=== PATIENT | male | born 1975 | race Caucasian/White ===

== ENCOUNTER 2016-07-13 06:04 | Emergency (ER) | payer BC, OTHER ==
[2016-07-13 06:19] VITALS: BP 134/77
[2016-07-13] MEDS ORDERED: Erythromycin Base 0.5% Ophth Oint 1 GM Tube EYERT ONE (06:27)
--- NOTE | 2016-07-13 06:32 | EDM.PDOC ---
ED HPI EYE COMPLAINT - General Chief Complaint: Eye Problems Stated Complaint: RIGHT EYE INJURY Time Seen by Provider: 07/13/16 06:11 Source: Reports: Patient History Limitations: Reports: No limitations - History of Present Illness INITIAL COMMENTS - FREE TEXT/NARRATIVE: This is a 40-year-old male. He is part of the [employer] group that here in town this weekend. Last night when it was late he went to his horse trailer and grabbed a bunch of coats that were hanging up and when he pulled them towards him one of the coat zippers hit him in the right eye. It bothered him for a little bit at that time but through the night it seems to have gotten worse and worse with increased watering of his right eye in crease pain of his right eye. He denies any other acute symptoms at this time. - Related Data Allergies/ADRs: Allergies No Known Allergies Allergy (Verified 07/13/16 06:19) Home Meds: Ambulatory Orders Medication Instructions Recorded Confirmed . [No Known Home Meds] 07/13/16 07/13/16 Past Medical History - Past Health History Medical/Surgical History: Denies Medical/Surgical History Social & Family History - Tobacco Use Smoking Status *Q: Never Smoker - Caffeine Use Caffeine Use: Reports: Coffee - Recreational Drug Use Recreational Drug Use: No ED ROS GENERAL - Review of Systems Review Of Systems: See Below Constitutional: Denies: fever, chills HEENT: Reports: Eye pain, Other (Eye watering) Respiratory: Reports: No Symptoms Cardiovascular: Reports: No symptoms Endocrine: Reports: no symptoms GI/Abdominal: Reports: No symptoms : Reports: no symptoms Musculoskeletal: Reports: no symptoms Skin: Reports: no symptoms Neurological: Reports: No Symptoms Psychiatric: Reports: No symptoms Hematologic/Lymphatic: Reports: no symptoms ED EXAM GENERAL W FULL EYE - Physical Exam Exam: See Below Exam Limited By: No limitations General Appearance: alert, WD/WN, no apparent distress Eye Exam: right eye: conjunctival injection, corneal abrasion (I.e. everted both lids there is no foreign body noted, with fluoresceine stain he is noted to have a 2-3 mm in diameter abrasion at approximately the 4:00 position of his cornea between the center and the edge of the cornea, no other acute findings are noted) Visual acuity (R) 20/: 20 Visual acuity (L) 20/: 20 With Correction: No Eyelids: right: lid everted for exam (See above) Conjunctiva & Sclera: right: injected (See above) Cornea Exam: right: corneal abrasion (See above) Pupils: normal accommodation Pupillary Reaction: bilateral: brisk Anterior Chamber: right: normal appearance Ears: normal external exam Nose: normal inspection Throat/Mouth: Normal lips, Normal voice Head: normocephalic Neck: supple Respiratory/Chest: no respiratory distress Back Exam: full range of motion Extremities: normal range of motion Neurological: alert, oriented Psychiatric: normal affect, normal mood Skin Exam: Warm, Dry Course - Vital Signs Last Recorded V/S: Last Vital Signs Temp 97.8 F 07/13/16 06:15 Pulse 77 07/13/16 06:15 Resp 18 07/13/16 06:15 BP 134/77 07/13/16 06:15 Pulse Ox 97 07/13/16 06:15 - Re-Assessments/Exams Free Text/Narrative Re-Assessment/Exam: 07/13/16 06:33 I explained to the patient that he will have some antibiotic ointment placed in his right eye and a patch for only 24 hours and then he must take it off and start using artificial tears to lubricate the eye so that will continue to heal and that he is not to rub the eye at all costs since it will cause the abrasion to get worse again. Departure - Departure Time of Disposition: 06:34 Disposition: Home, Self-Care 01 Condition: good Clinical Impression: Corneal abrasion, right Qualifiers: Encounter type: initial encounter Qualified Code(s): S05.01XA - Injury of conjunctiva and corneal abrasion without foreign body, right eye, initial encounter Forms: ED Department Discharge Additional Instructions: Wear the patch for the next 24 hours, do not rub your eye while the patch is on , once you take the patch off get some artificial tears from the pharmacy they' re just [id number] and start using them as frequently you need to help with the irritation since they act as a lubricant will make the eye feel better , when the eye patch is off do not rub the eye because you will make the abrasion worse, followup with your doctor if needed or return to the ER if your symptoms worsen
== END 2016-07-13 06:47 | disposition home or self-care (01) ==
LOC: JD.ED 06:04
DX: S05.01XA Injury of conjunctiva and corneal abrasion without foreign body, right eye, initial encounter (principal); W22.8XXA Striking against or struck by other objects, initial encounter
CPT/HCPCS: 99283; A9270; 99282